=== PATIENT | female | born 1960 | race Caucasian/White ===

== ENCOUNTER 2022-09-27 13:55 | Outpatient (NON) | payer MEDICARE, SELFPAY | END 2022-09-27 13:56 | disposition home or self-care (01) | LOC: ANHLAB 13:56 | PROVIDERS: Visit Provider Nurse Practitioner | DX: C44.619 Basal cell carcinoma of skin of left upper limb, including shoulder (principal) | CPT/HCPCS: 88305; 88331 ==

== ENCOUNTER 2023-03-21 12:19 | Outpatient (NON) | payer MEDICARE, SELFPAY | END 2023-03-21 12:20 | disposition home or self-care (01) | LOC: ANHLAB 03-23 12:22 | PROVIDERS: Visit Provider Nurse Practitioner | DX: C44.629 Squamous cell carcinoma of skin of left upper limb, including shoulder (principal); C43.72 Malignant melanoma of left lower limb, including hip; C44.519 Basal cell carcinoma of skin of other part of trunk | CPT/HCPCS: 88305 ==

== ENCOUNTER 2023-03-28 12:34 | Outpatient (CLI) | payer MEDICARE, SELFPAY ==
--- NOTE | 2023-03-28 12:42 | ECG_ITS ---
Measurements Intervals [place] Rate: 69 P: 12 PA: 161 QRS: 2 QRSD: 98 T: 18 QT: 386 QTc: 415 Interpretive Statements SINUS RHYTHM DELAYED PRECORDIAL R/S TRANSITION LOW QRS VOLTAGE IN PRECORDIAL LEADS BORDERLINE T WAVE ABNORMALITY- ANT/INF LEADS BASELINE ARTIFACT- I, III BORDERLINE ECG NO PREVIOUS ECG AVAILABLE FOR COMPARISON Electronically Signed On 03-28-2023 13:15:17 CDT by Juventino Vargas D.O.
== END 2023-03-28 12:35 | disposition home or self-care (01) ==
LOC: ANHSURGERY 12:41
PROVIDERS: PCP Family Medicine; Visit Provider Surgery Plastic and Reconstructive Surgery
DX: E78.00 Pure hypercholesterolemia, unspecified (principal); Z01.818 Encounter for other preprocedural examination
CPT/HCPCS: 93005

== ENCOUNTER 2023-03-29 04:34 | Day surgery (SDC) | payer MEDICARE, SELFPAY ==
[2023-03-25 11:55] VITALS: BMI 28.3
--- NOTE | 2023-03-25 12:01 | PC.NURSE ---
Report to the Outpatient Waiting Room, entrance under the green pavilion located off [facility], at time 11:00 on date 03/29/23. Planned Procedure Time: 1:00. Time changes happen often and if your time is changed the preop area will call you the afternoon before. - You and your visitor will be asked to self-screen and do not enter if you have any COVID symptoms. - A mask is optional within the hospital at this time. Patients may have clear liquids (water, carbonated beverages, clear teas, apple juice) until 3 hours prior to surgery (10:00) with a maximum of 20 ounces. - No food from midnight until time of surgery Take the following medications with a SIP of water the morning of surgery: ALPRAZOLAM, BUSPIRONE, CLONAZEPAM, LEVOTHYROXINE, SERTRALINE, TOPIRAMATE DO NOT STOP ANY OF YOUR OTHER PRESCRIPTION MEDICATIONS PRIOR TO SURGERY ?EXCEPT THE FOLLOWING Medications to discontinue per physician: N/A Date to take last dose: N/A Please no make-up, nail macanese, hairspray, perfume, deodorant, or body powder the day of surgery. No jewelry (including any body piercings) or valuables the day of surgery, leave them at home. Please take a shower or bath the night before, or the morning of, surgery with an antibacterial soap. Wear comfortable, loose fitting clothing. - Jewelry must be removed prior to entering the operating room. Rings and piercings that are not removed may be cut off. - The hospital will not accept responsibility for valuables. - Please leave all valuables, including medications, at home the day of surgery. If you are going home after surgery, a licensed scoop driver must drive you home. - NO public transportation without another adult if you receive anesthesia. - We recommend that an adult stay with you for 24 hours following discharge. - We also recommend that you do not drive, make important decision, drink alcoholic beverages, or take any drugs that were not prescribed by your health care provider for at least 24 hours after your discharge time. Follow any additional instructions given to you from your surgeon. If you or anyone in your household have experienced Covid symptoms in the past week, please notify your surgeon or the nurse liaison at the phone number below for possible testing. Telephone instructions given to PT - DANIELLE SMITH and asked if any additional questions and then verbalized understanding. Patient advised to call surgeon office or pre surgery nurse liaison [phone] if any additional questions.
[2023-03-29] VITALS (10 sets, daily range): BP systolic 84–125; BP diastolic 48–69; PULSE 65–73; RESP 11–20; TEMP 36.3–37; O2SAT 96–100
--- NOTE | 2023-03-29 11:50 | P.PNAN_ITS ---
Anes - Initial Pre Proc Eval Procedure: Operation Date: 03/29/23 13:00 Proposed Procedures p Excision Subcutaneous Mass Right Forearm, - Cuco Garcia MD s Excision Melanoma Left Leg - Cuco Garcia MD s with Possible Split Thickness Skin Graft - Cuco Garcia MD Date/Time: 03/29/23 11:50 Surgeon: Cuco Garcia MD Pre Op Diagnosis: 15 cm subq rt arm mass, melanoma left leg Patient Data Age: 63 Gender: F Height: 1.64 m Weight: 76.1 kg Last Vital Signs Temp 37.0 C 03/29/23 10:53 Pulse 65 03/29/23 10:53 Resp 20 03/29/23 10:53 BP 110/61 03/29/23 10:53 Pulse Ox 98 03/29/23 10:53 O2 Del Method Room Air 03/29/23 10:53 Allergies Allergy/AdvReac Type Severity Reaction Status Date / Time No Known Allergies Allergy Verified 03/29/23 11:29 Home Medications Medication Instructions Recorded Confirmed Type alprazolam 1 mg tablet 1 mg PO DAILY 03/25/23 03/29/23 History atorvastatin 20 mg tablet 20 mg PO HS 03/25/23 03/29/23 History buspirone 30 mg tablet 30 mg PO BID 03/25/23 03/29/23 History clonazepam 1 mg tablet 1 mg PO BID 03/25/23 03/29/23 History estradiol 0.5 mg tablet 0.5 mg PO DAILY 03/25/23 03/29/23 History levothyroxine 75 mcg tablet 75 mcg PO DAILY 03/25/23 03/29/23 History progesterone micronized 100 mg 100 mg PO HS 03/25/23 03/29/23 History capsule sertraline 100 mg tablet 100 mg PO BID 03/25/23 03/29/23 History topiramate 200 mg tablet 200 mg PO BID 03/25/23 03/25/23 History vibegron 75 mg tablet (Gemtesa) 75 mg PO HS 03/25/23 03/25/23 History Patient hx anesthesia problems: none Family hx anesthesia problems: none Results Review: All pre-operative results and documents have been reviewed as part of the pre- operative evaluation. [facility] Past Medical History Medical History (Updated 03/29/23 @ 11:52 by Homer Adams MD) Melanoma Overweight Social History Social History Smoking status: Never smoker Alcohol intake: never Substance use: never Substance use type: does not use Living arrangements: with family Spiritual care concerns: No Anes - Eval Final PreProcedure Day of Procedure 03/29/23 11:50 Patient weight: overweight Heart: regular rate and rhythm Lungs: clear to auscultation Airway: Mallampati scale class II Neurological: alert and oriented Last oral intake: >/= 8 hours ASA classification: III Emergent: no Anesthetic plan: proceed Anesthesia type and monitoring: general LMA and standard monitoring Results Review: All pre-operative results and documents have been reviewed as part of the pre- operative evaluation. Informed Consent: The patient's anesthetic plan and its attendant risks and benefits were discussed with the patient/family/POA. Questions were solicited and answers provided to the satisfaction of the patient/family/POA.
[2023-03-29] MEDS: LACTATED RINGERS 1,000 ML 30 ML IV CONT ×2 (12:45→15:29)
--- NOTE | 2023-03-29 13:09 | WPDHPUPDATE1 ---
History and Physical Update Update Date/Time: 03/29/23 13:09 History and Physical has been reviewed, including an updated exam of the patient. There are NO changes in the patient's condition. Risks, benefits, and alternatives have been discussed and questions answered. Patient agrees to proceed with procedure.
--- NOTE | 2023-03-29 13:15 | W.PM.PROC2 ---
Procedure Note - Detailed Date of Procedure 03/29/23 Pre-op Diagnosis subq rt arm mass, melanoma left leg Post-op Diagnosis Same Procedure Performed 1. Excision right forearm lipoma 15 cm. 2. Wide excision left posterior lower leg melanoma 5 cm Surgeon Cuco Garcia MD Anesthesia General Findings Right forearm multiple soft tissue masses identified, clinically multi-focal lipomas Left lower extremity calf melanoma excised with > 1 cm clinical margin Description of Procedure Preoperatively the risks, benefits, alternatives were discussed in extensive detail. Want her to be very realistic about the risks involved as well as expectations. Made sure we had a lengthy discussion options. Discussed realistic expectations of outcome. She understands melanoma can metastasis to other organs in lead to. We discussed NCCN criteria guidelines. Understands there is the risk of nerve, blood vessel, other structure injury of the possibility we may not be able to remove the entire lipoma and she may need additional treatments in the future. Reviewed this in great detail with her and her . Made sure answered all of their questions to their satisfaction. They voiced a clear understanding. Consent obtained. She was marked in the preoperative holding area with her verification. On the forearm she was able to fully flex and extend all digits and there is no evidence of deep involvement. She has taken to the operating room placed supine on the operating room table. Anesthesia provided by anesthesiology. She was prepped and draped in a standard sterile fashion. Right arm subcutaneous mass 1% lidocaine and 0.25% Marcaine with epinephrine was used anesthetize locally. A 15 blade used to make an incision over the masses and dissection was continued down until the lipoma was identified completely removed. Measurements as above. This was closed with 3-0 Monocryl followed by running subcuticular 4-0 Monocryl and tissue glue. Fluffs and a lightly applied Master wraps for final dressing. Left leg melanoma I then proceeded to the right posterior lower extremity below the knee. I marked out with greater than 1 cm margins. 1% lidocaine and 0.25% Marcaine with epinephrine was used anesthetize closely locally. Fifteen blade was used to excise the mass down the level the fascia. Irrigated with saline and closed in many layers to obliterate all space with many layers of 2-0 Stratafix all by 3-0 Stratafix and a 3-0 nylon. Dressing was placed. She was awoke and taken to the PACU without difficulty. All instrument sponge counts were correct at the end of the case. Estimated Blood Loss 10 Drains No Packing No Pathology Yes (Right forearm mass, left posterior lower leg below knee melanoma.) Complications No immediate complications Condition Stable Disposition PACU
[2023-03-29] MEDS: LIDO 1%/EPINEPHRINE 1:100,000 20 ML VIAL 40 ML INFILTRATE (13:23)
[2023-03-29] MEDS: BUPivacaine HCL 0.25% PF 30 ML VIAL INFILTRATE (13:23)
[2023-03-29] MEDS: ceFAZolin 2 GM/D5W 50 ML 2 GM/50 ML BAG IVPB (13:40)
[2023-03-29] MEDS: BACITRACIN OINTMENT 15 GM TUBE 1 APPLIC TOPICAL (14:30)
== END 2023-03-29 17:15 | disposition home or self-care (01) ==
PROVIDERS: PCP Family Medicine; Visit Provider Surgery Plastic and Reconstructive Surgery
PROC: (CPT 25071; principal; 2023-03-29 13:00)
PROC: (CPT 25071; 2023-03-29 13:00)
DX: D03.72 Melanoma in situ of left lower limb, including hip (principal); D17.21 Benign lipomatous neoplasm of skin and subcutaneous tissue of right arm; L82.1 Other seborrheic keratosis
CPT/HCPCS: 25071; 11606; 12032; 88304; 88305; 93005; A9270; J0690; J1100; J2250; J2405; J2704; J3010; J7120

== ENCOUNTER 2023-05-09 10:14 | Outpatient (NON) | payer MEDICARE, SELFPAY | END 2023-05-09 10:15 | disposition home or self-care (01) | PROVIDERS: PCP Family Medicine; Visit Provider Nurse Practitioner | DX: C44.519 Basal cell carcinoma of skin of other part of trunk (principal) | CPT/HCPCS: 88305; 88331 ==

== ENCOUNTER 2023-07-18 07:00 | Outpatient (NON) | payer MEDICARE, SELFPAY | END 2023-07-18 07:01 | disposition home or self-care (01) | LOC: ANHLAB 07-20 14:32 | PROVIDERS: PCP Family Medicine; Visit Provider Nurse Practitioner | DX: D22.72 Melanocytic nevi of left lower limb, including hip (principal) | CPT/HCPCS: 88305 ==